=== PATIENT | male | born 1965 | race Caucasian/White ===

== ENCOUNTER 2020-12-31 04:03 | Emergency (ER) | payer OTHER ==
[~2020-12-31] VITALS: Ht 188 cm; Wt 142.9 kg
--- NOTE | ~2020-12-31 | EMS ---
[address] [place] [address] EMS Patient Care Report Name: YUNG REIS JR Room: [facility] Melina#: [id number] Admission: 12/31/20 Attend Phys: Discharge: 12/31/20 Date of : 69 Report #: [id number] THIS REPORT FOR: //name// Report Transmitted: 12/31/2020 06:02 EMS Care Summary [facility] Incident [id number] @ 12/31/2020 03:25 Incident Location [address] [place] [id number] Patient SMILEY BARRAGAN Male, 55 Years 1965 Patient Address [address] [place] [id number] Patient History Kidney Stone, Patient Allergies Penicillin allergy, Patient Medications Zofran, Tamsulosin, Hydrocodone, Chief Complaint Kidney Stones Disposition Transported No Lights/[place] Reason Abdominal Pain/Problems Transported To [facility] Narrative Med 1 and Engine 2 were dispatched for a [age] year old male c/o flank pain due to kidney stones. Upon arrival, the patient was lying face down on the floor with his knees drawn up c/o 10/10 pain due to attempting to pass [address] [place] [address] EMS Patient Care Report Name: YUNG REIS JR Room: [facility]#: [id number] Admission: 12/31/20 Attend Phys: Discharge: 12/31/20 Date of : 69 Report #: [id number] kidney stones. Patient reports that he went to [facility] yesterday they sent home with medication but it is not helping the pain. Patient was assisted to a standing position and pivoted to the stretcher. Patient laid on his left side and was secured to the stretcher and moved to the ambulance without incident. In the ambulance, patients vitals were obtained. Patient was placed on the cardiac rehabilitation program director and IV access was obtained with a 20 GA IV catheter saline lock in the patients left AC. Patient was given Fentanyl for the pain and the patient reported that he took his prescription for Hydrocodone thirty minutes prior to calling EMS and it was not helping. Med 1 went en route to [facility]. Patient was monitored throughout transport. Patient pain did decrease to a 7. Report was given to the hospital via radio with no questions or orders requested or received. Med 1 arrived at the hospital. Patient was moved into the ER via stretcher without incident. Patient care was transferred to ER staff in room 7. Med 1 returned back into service. [id number] KShook Initial Vitals @03:53P: 71,SpO2: 90, @03:36P: 76,SpO2: 95, @03:38P: 76,SpO2: 96, @03:48P: 69,SpO2: 96, @03:43P: 75,SpO2: 93, @03:36P: 70,R: 20,BP: 128/91,Glucose: 159,SpO2: 95, @03:48P: 70,R: 20,BP: 119/86,GCS: 15,SpO2: 98,Revised Trauma: 12, Impression Kidney stones Procedures @03:32Saline Lock 10cc (20 ga) Site: Antecubital-LeftResponse: UnchangedSucceeded@03:30Fentanyl - 150 Micrograms (mcg) - Intravenous (IV)Response: Improved Timeline 03:25,Call Received 03:25,Dispatched 03:26,En Route 03:28,On Scene 03:29,[place] [address] EMS Patient Care Report Name: YUNG REIS JR Room: [facility]#: [id number] Admission: 12/31/20 Attend Phys: Discharge: 12/31/20 Date of : 69 Report #: [id number] 03:30,Fentanyl - 150 Micrograms (mcg) - Intravenous (IV),Response: Improved 03:32,Saline Lock 10cc 20 ga Site: Antecubital-Left,Response: UnchangedSucceeded, 03:36,BP: / M,PULSE: 76,RR: R,SPO2: 95 Ox,ETCO2: ,BG: ,PAIN: ,GCS: , 03:36,BP: 128/91 M,PULSE: 70,RR: 20 R,SPO2: 95 Ox,ETCO2: ,B,PAIN: ,GCS: , 03:37,Depart Scene 03:38,BP: / M,PULSE: 76,RR: R,SPO2: 96 Ox,ETCO2: ,BG: ,PAIN: ,GCS: , 03:43,BP: / M,PULSE: 75,RR: R,SPO2: 93 Ox,ETCO2: ,BG: ,PAIN: ,GCS: , 03:48,BP: / M,PULSE: 69,RR: R,SPO2: 96 Ox,ETCO2: ,BG: ,PAIN: ,GCS: , 03:48,BP: 119/86 M,PULSE: 70,RR: 20 R,SPO2: 98 Ox,ETCO2: ,BG: ,PAIN: ,GCS: 15, 03:53,BP: / M,PULSE: 71,RR: R,SPO2: 90 Ox,ETCO2: ,BG: ,PAIN: ,GCS: , 03:55,At Destination 04:26,Call Closed 04:26,In District Disclaimer v1.1 Copyright 2020 [employer] This EMS Care Summary contains data elements from the applicable legal record (which may be displayed differently). It is designed to provide pertinent information for the following purposes: continuity of care, clinical quality, and state data reporting. The complete legal record is available to ED staff and administrators of the receiving hospital in [employer] Patient Tracker. All data is provided "as is."
[2020-12-31] MEDS ORDERED: FLOMAX0.4 MG (04:07)
[2020-12-31] MEDS ORDERED: HYDROCODON-ACE1 EAC5 (04:07)
[2020-12-31 04:59] LABS: ABSOLUTE LYMPHOCYTES 0.9 thou/uL (0.8-5.3); ABSOLUTE MONOCYTES 0.6 thou/uL (0.0-1.2); ABSOLUTE NEUTROPHILS 5.6 thou/uL (1.6-8.1); BASOPHILS 0.3 %; EOSINOPHILS 0.3 %; HEMATOCRIT 41.1 % (42.0-52.0); HEMOGLOBIN 14.2 gm/dL (14.0-18.0); LYMPHOCYTES 12.9 %; MCH 30.6 pg (26.0-34.0); MCHC 34.5 g/dL (28.0-37.0); MCV 88.8 fL (80.0-100.0); MONOCYTES 8.8 %; NUCLEATED RBCS 0 /100WBC; PLATELET COUNT* 87 thou/uL (150-400); POLYS 77.7 %; RBC 4.63 mil/uL (4.50-6.00); WBC 7.2 thou/uL (4.0-11.0)
[2020-12-31 05:18] LABS: CALCIUM 8.9 mg/dL (8.5-10.1); CREATININE 1.6 mg/dL (0.6-1.3); POTASSIUM 4.4 mmol/L (3.5-5.1)
[2020-12-31 05:30] LABS: URINE BILIRUBIN NEGATIVE (Negative); URINE BLOOD NEGATIVE (Negative); URINE CLARITY CLEAR; URINE COLOR YELLOW; URINE GLUCOSE-RANDOM NEGATIVE (Negative); URINE KETONES NEGATIVE (Negative); URINE LEUKOCYTES-REFLEX NEGATIVE (Negative); URINE NITRITE-REFLEX NEGATIVE (Negative); URINE PROTEIN NEGATIVE (Negative); URINE UROBILINOGEN 0.2 E.U./dl (0.2-1.0)
[2020-12-31 05:37] LABS: AMP/METHAMP POSITIVE (Negative); BARBITURATES Negative (Negative); BENZODIAZEPINES Negative (Negative); COCAINE Negative (Negative); METHADONE Negative (Negative); OPIATES POSITIVE (Negative); PCP Negative (Negative); THC POSITIVE (Negative)
[2020-12-31 06:30] VITALS: BP 130/73
== END 2020-12-31 06:30 | disposition home or self-care (01) ==
LOC: M.ERS 04:03
PROVIDERS: Emergency Medicine
DX: N20.1 Calculus of ureter (principal); R11.2 Nausea with vomiting, unspecified; Z87.442 Personal history of urinary calculi; Z79.899 Other long term (current) drug therapy; Z88.0 Allergy status to penicillin